=== PATIENT | female | born 1950 | race Caucasian/White ===

== ENCOUNTER → 2023-06-29 09:59 | Outpatient (REF) | payer MEDICARE, OTHER, SELFPAY ==
[2023-06-29 12:47] LABS: % Basophils 0.4 % (0-2); % Eosinophils 1.7 % (0-6); % Immature Granulocytes 0.2 % (0-0.5); % Lymphocytes 31.2 % (20.5-51.1); % Monocytes 6.3 % (1.7-9.3); % Neutrophils 60.2 % (42.2-75.2); Absolute Eosinophils 0.1 10^3/uL (0-0.7); Absolute Lymphocytes 1.6 10^3/uL (1.2-3.4); Absolute Monocytes 0.3 10^3/uL (0.1-0.6); Absolute Neutrophils 3.1 10^3/uL (1.4-6.5); Hematocrit 37.1 % (37.0-47.0); Hemoglobin 12.7 g/dL (12.0-16.0); Mean Corp Hgb Conc. 34.2 g/dL (33.0-37.0); Mean Corpuscular Hgb 32.6 pg (27.0-31.0); Mean Corpuscular Volume 95.1 fL (81.0-99.0); Mean Platelet Volume 10.6 fL (7.4-10.4); Nucleated Red Blood Cells % 0 %; Platelet Count 283 10^3/uL (130-400); Red Cell Dist. Width 14.2 % (11.5-14.5); White Blood Cell Count 5.2 10^3/uL (4.8-10.8)
[2023-06-29 13:11] LABS: Iron 102 ug/dl (37-170)
[2023-06-29 13:22] LABS: Percent Saturation 40 % (20-50); Total Iron Binding Capacity 253 ug/dl (265-497)
[2023-06-29 13:48] LABS: Ferritin 62.7 ng/ml (11.1-264.0)
[2023-06-29 14:24] LABS: Vitamin B12 360 pg/ml (239-931)
[2023-06-29 18:07] LABS: Folate > 20.0 ng/ml (2.76-20)
== END ==
LOC: HWLAB 09:59
PROVIDERS: ATTENDING PHYSICIAN Internal Medicine
DX: I44.7 Left bundle-branch block, unspecified (principal); D64.9 Anemia, unspecified
CPT/HCPCS: 36415; 82607; 82728; 82746; 83540; 83550; 85025

== ENCOUNTER → 2023-10-19 12:09 | Outpatient (REF) | payer MEDICARE, OTHER, SELFPAY | LOC: HWRAD 12:09 | PROVIDERS: ATTENDING PHYSICIAN Registered Nurse Ambulatory Care; FAMILY PHYSICIAN Internal Medicine; REFERRING PHYSICIAN Chiropractor | DX: M79.651 Pain in right thigh (principal) | CPT/HCPCS: 72110; 73501 ==

== ENCOUNTER → 2023-10-26 10:17 | Outpatient (REF) | payer MEDICARE, OTHER, SELFPAY ==
[2023-10-26 12:04] LABS: Urine Albumin Negative (Neg - Trace); Urine Bilirubin Negative (Negative); Urine Character Clear (Clear); Urine Color Yellow; Urine Glucose Negative (Negative); Urine Ketone Negative (Negative); Urine Leukocyte Negative (Negative); Urine Nitrite Negative (Negative); Urine Occult Blood Negative (Negative); Urine Urobilinogen Negative (Neg - 1+)
== END ==
LOC: HWLAB 10:17
PROVIDERS: ATTENDING PHYSICIAN Registered Nurse Ambulatory Care
DX: R39.9 Unspecified symptoms and signs involving the genitourinary system (principal); R31.9 Hematuria, unspecified
CPT/HCPCS: 81003

== ENCOUNTER → 2023-11-03 13:36 | Outpatient (REF) | payer MEDICARE, OTHER, SELFPAY | LOC: MRI 13:36 | PROVIDERS: ATTENDING PHYSICIAN Pain Medicine Interventional Pain Medicine; FAMILY PHYSICIAN Internal Medicine; REFERRING PHYSICIAN Chiropractor | DX: M25.551 Pain in right hip (principal) | CPT/HCPCS: 73721 ==

== ENCOUNTER → 2023-11-22 08:58 | Outpatient (REF) | payer MEDICARE, OTHER, SELFPAY ==
[2023-11-22 12:03] LABS: % Basophils 0.2 % (0-2); % Eosinophils 0.2 % (0-6); % Immature Granulocytes 0.4 % (0-0.5); % Lymphocytes 25.5 % (20.5-51.1); % Monocytes 6.9 % (1.7-9.3); % Neutrophils 66.8 % (42.2-75.2); Absolute Lymphocytes 1.4 10^3/uL (1.2-3.4); Absolute Monocytes 0.4 10^3/uL (0.1-0.6); Absolute Neutrophils 3.7 10^3/uL (1.4-6.5); Hematocrit 35.3 % (37.0-47.0); Hemoglobin 12.4 g/dL (12.0-16.0); Mean Corp Hgb Conc. 35.1 g/dL (33.0-37.0); Mean Corpuscular Hgb 32.6 pg (27.0-31.0); Mean Corpuscular Volume 92.9 fL (81.0-99.0); Mean Platelet Volume 11.1 fL (7.4-10.4); Nucleated Red Blood Cells % 0 %; Platelet Count 214 10^3/uL (130-400); Red Cell Dist. Width 13.9 % (11.5-14.5); White Blood Cell Count 5.5 10^3/uL (4.8-10.8)
[2023-11-22 12:15] LABS: ALT (SGPT) 57 U/L (0-35); AST (SGOT) 36 U/L (14-36); Albumin 3.9 g/dl (3.5-5.0); Alkaline Phosphatase 50 U/L (38-126); Blood Urea Nitrogen 30 mg/dl (7-17); Calcium 9.5 mg/dl (8.4-10.2); Carbon Dioxide 28 mmol/L (22-30); Chloride 108 mmol/L (98-107); Glucose 109 mg/dl (70-99); HDL Cholesterol 68 mg/dl; LDL Cholesterol, Calculated 114 mg/dl; Potassium 4.4 mmol/L (3.5-5.1); Sodium 140 mmol/L (135-145); Total Bilirubin 1.4 mg/dl (0.2-1.3); Total Cholesterol 199 mg/dl (50-199); Total Protein 6.2 g/dl (6.3-8.2); Triglyceride 87 mg/dl (10-149); Very Low Density Lipoprotein 17 mg/dl (0-30); eGFR 53.72
[2023-11-22 12:31] LABS: Vitamin D, 25-OH*** 50.5 ng/mL (30-80)
[2023-11-22 12:45] LABS: TSH Reflex To Free T4 1.63 uIU/ml (0.47-4.68)
[2023-11-22 13:21] LABS: Folate > 20.0 ng/ml (2.76-20); Vitamin B12 962 pg/ml (239-931)
== END ==
LOC: HWLAB 08:58
PROVIDERS: ATTENDING PHYSICIAN Internal Medicine
DX: R73.09 Other abnormal glucose (principal); D64.9 Anemia, unspecified; E53.8 Deficiency of other specified B group vitamins; E78.5 Hyperlipidemia, unspecified; E55.9 Vitamin D deficiency, unspecified; I10 Essential (primary) hypertension
CPT/HCPCS: 36415; 80053; 80061; 82306; 82607; 82746; 83036; 84443; 85025

== ENCOUNTER → 2024-02-07 15:06 | Outpatient (REF) | payer MEDICARE, OTHER, SELFPAY | LOC: HWWDC 15:06 | PROVIDERS: ATTENDING PHYSICIAN Internal Medicine | DX: Z12.31 Encounter for screening mammogram for malignant neoplasm of breast (principal) | CPT/HCPCS: 77063; 77067 ==

== ENCOUNTER → 2024-05-03 09:34 | Outpatient (REF) | payer MEDICARE, OTHER, SELFPAY ==
[2024-05-03 12:48] LABS: ALT (SGPT) 27 U/L (0-35); AST (SGOT) 30 U/L (14-36); Albumin 3.7 g/dl (3.5-5.0); Alkaline Phosphatase 49 U/L (38-126); Blood Urea Nitrogen 20 mg/dl (7-17); Calcium 9.4 mg/dl (8.4-10.2); Carbon Dioxide 31 mmol/L (22-30); Chloride 106 mmol/L (98-107); Glucose 106 mg/dl (70-99); HDL Cholesterol 77 mg/dl; LDL Cholesterol, Calculated 113 mg/dl; Potassium 4.1 mmol/L (3.5-5.1); Sodium 140 mmol/L (135-145); Total Bilirubin 1.3 mg/dl (0.2-1.3); Total Cholesterol 212 mg/dl (50-199); Total Protein 6.1 g/dl (6.3-8.2); Triglyceride 114 mg/dl (10-149); Very Low Density Lipoprotein 22 mg/dl (0-30); eGFR > 60.00
== END ==
LOC: HWLAB 09:34
PROVIDERS: ATTENDING PHYSICIAN Internal Medicine
DX: Z00.00 Encounter for general adult medical examination without abnormal findings (principal); R79.89 Other specified abnormal findings of blood chemistry; E78.5 Hyperlipidemia, unspecified
CPT/HCPCS: 36415; 80053; 80061

== ENCOUNTER → 2024-11-26 07:50 | Outpatient (REF) | payer MEDICARE, OTHER, SELFPAY ==
[2024-11-26 10:03] LABS: Hematocrit 34.4 % (37.0-47.0); Hemoglobin 11.6 g/dL (12.0-16.0); Mean Corp Hgb Conc. 33.7 g/dL (33.0-37.0); Mean Corpuscular Volume 94.2 fL (81.0-99.0); Nucleated Red Blood Cells % 0 %; Platelet Count 250 10^3/uL (130-400); Red Cell Dist. Width 13.9 % (11.5-14.5)
[2024-11-26 10:16] LABS: ALT (SGPT) 23 U/L (0-35); AST (SGOT) 25 U/L (14-36); Albumin 4.0 g/dl (3.5-5.0); Alkaline Phosphatase 49 U/L (38-126); Blood Urea Nitrogen 28 mg/dl (7-17); Calcium 9.4 mg/dl (8.4-10.2); Carbon Dioxide 24 mmol/L (22-30); Chloride 111 mmol/L (98-107); Glucose 101 mg/dl (70-99); HDL Cholesterol 66 mg/dl; LDL Cholesterol, Calculated 110 mg/dl; Potassium 4.1 mmol/L (3.5-5.1); Sodium 142 mmol/L (135-145); Total Protein 6.2 g/dl (6.3-8.2); Very Low Density Lipoprotein 14 mg/dl (0-30); eGFR 59.86
[2024-11-26 10:20] LABS: Glycohemoglobin (HgbA1c) 5.4 % (4.0-5.6)
[2024-11-26 10:42] LABS: TSH 2.66 uIU/ml (0.47-4.68)
== END ==
LOC: HWLAB 07:50
PROVIDERS: ATTENDING PHYSICIAN Internal Medicine
DX: R79.89 Other specified abnormal findings of blood chemistry (principal); E78.5 Hyperlipidemia, unspecified
CPT/HCPCS: 36415; 80053; 80061; 83036; 84443; 85025

== ENCOUNTER → 2025-01-28 14:03 | Outpatient (REF) | payer MEDICARE, OTHER, SELFPAY | LOC: HWRAD 14:03 | PROVIDERS: ATTENDING PHYSICIAN Internal Medicine | DX: M85.80 Other specified disorders of bone density and structure, unspecified site (principal); M85.89 Other specified disorders of bone density and structure, multiple sites | CPT/HCPCS: 77080 ==

== ENCOUNTER → 2025-02-07 07:59 | Outpatient (REF) | payer MEDICARE, OTHER, SELFPAY | LOC: HWWDC 07:59 | PROVIDERS: ATTENDING PHYSICIAN Internal Medicine | DX: Z12.31 Encounter for screening mammogram for malignant neoplasm of breast (principal) | CPT/HCPCS: 77063; 77067 ==

== ENCOUNTER → 2025-02-14 08:21 | Outpatient (REF) | payer MEDICARE, OTHER, SELFPAY ==
[2025-02-14 09:39] LABS: Hematocrit 36.8 % (37.0-47.0); Hemoglobin 12.1 g/dL (12.0-16.0); Mean Corp Hgb Conc. 32.9 g/dL (33.0-37.0); Mean Corpuscular Volume 93.9 fL (81.0-99.0); Nucleated Red Blood Cells % 0 %; Platelet Count 248 10^3/uL (130-400); Red Cell Dist. Width 13.8 % (11.5-14.5)
[2025-02-14 10:46] LABS: ALT (SGPT) 27 U/L (0-35); AST (SGOT) 29 U/L (14-36); Albumin 4.3 g/dl (3.5-5.0); Alkaline Phosphatase 52 U/L (38-126); Calcium 9.8 mg/dl (8.4-10.2); Carbon Dioxide 28 mmol/L (22-30); Chloride 109 mmol/L (98-107); Glucose 94 mg/dl (70-99); Iron 95 ug/dl (37-170); Potassium 4.3 mmol/L (3.5-5.1); Sodium 142 mmol/L (135-145); Total Protein 6.9 g/dl (6.3-8.2); eGFR 59.49
[2025-02-14 10:56] LABS: Total Iron Binding Capacity 258 ug/dl (265-497)
[2025-02-14 13:05] LABS: Ferritin 58.6 ng/ml (11.1-264.0)
[2025-02-14 13:36] LABS: Blood Urea Nitrogen 27 mg/dl (7-17)
[2025-02-14 13:37] LABS: Folate > 20.0 ng/ml (2.76-20); Vitamin B12 602 pg/ml (239-931)
== END ==
LOC: HWLAB 08:21
PROVIDERS: ATTENDING PHYSICIAN Internal Medicine
DX: R79.89 Other specified abnormal findings of blood chemistry (principal); D64.9 Anemia, unspecified; M50.222 Other cervical disc displacement at C5-C6 level
CPT/HCPCS: 36415; 80053; 82607; 82728; 82746; 83540; 83550; 85025

== ENCOUNTER 2025-03-10 19:02 | Emergency (ER) | payer MEDICARE, OTHER, SELFPAY ==
[2025-03-10 19:03] VITALS: BP 168/87
[2025-03-10 19:33] LABS: Hematocrit 40.0 % (37.0-47.0); Hemoglobin 13.3 g/dL (12.0-16.0); Mean Corp Hgb Conc. 33.3 g/dL (33.0-37.0); Mean Corpuscular Volume 93.0 fL (81.0-99.0); Nucleated Red Blood Cells % 0 %; Platelet Count 241 10^3/uL (130-400); Red Cell Dist. Width 13.9 % (11.5-14.5)
[2025-03-10 19:57] LABS: ALT (SGPT) 37 U/L (0-35); AST (SGOT) 28 U/L (14-36); Albumin 4.1 g/dl (3.5-5.0); Alkaline Phosphatase 51 U/L (38-126); Blood Urea Nitrogen 30 mg/dl (7-17); Calcium 9.8 mg/dl (8.4-10.2); Carbon Dioxide 28 mmol/L (22-30); Chloride 109 mmol/L (98-107); Glucose 147 mg/dl (70-99); Potassium 4.7 mmol/L (3.5-5.1); Sodium 140 mmol/L (135-145); Total Protein 6.7 g/dl (6.3-8.2); eGFR 59.49
[2025-03-10 20:11] LABS: Troponin I < 0.012 ng/ml
[2025-03-10 21:12] VITALS: BP 155/73
--- NOTE | 2025-03-10 21:56 | ED.GENMED ---
History of Present Illness
General
Chief Complaint: Cardiac Symptoms
Time Seen by Provider: 03/10/25 21:06
History of Present Illness
History of Present Illness:
74-year-old female with history of hyperlipidemia presenting to the emergency department for chest pain. Patient reports over the past few weeks she has been having some episodes of chest pain. She notes 2 episodes about 1 to 2 weeks ago, lasting
about 15 minutes. Pain was right-sided, sharp in quality. 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 She denies any known cardiac history. She notes a normal stress test several years ago. Last
night while she was sitting, again started to have some sternal chest pain, which lasted about 2 to 3 minutes. She denies any present chest pain, difficulty breathing, fever, cough. Denies any associated diaphoresis. Denies additional acute
medical complaints.
Past History
Past History
ED Past Medical History: Hypercholesterolemia and Other (History of right bundle branch block, arthritis, degenerative joint disease, osteoarthritis, osteoporosis, lumbar or sacral herniated disks, amblyopia)
ED Past Surgical History: Cholecystectomy, Gynecological (Hysterectomy), Orthopedic (Bilateral knee was placed , left foot surgery 2006 right foot surgery 2002 right knee in 2002) and Tonsilectomy
Social History
Personal:
Living: alone
Employment: Disabled
Phy Exam
Physical Exam
Physical Exam:
General: Well-appearing, no clinical signs of dehydration, nontoxic and in no acute distress
HEENT: protecting airway
Neck: appears supple
CV: Normal heart rate, regular rhythm
Resp: No accessory muscle use, no increased work of breathing, lungs clear to auscultation bilaterally
Abd: No distention
Extremities: No deformities, no swelling
Neuro: alert, no focal neurologic deficit
: deferred
Rectal: deferred
Psych: Normal affect
Skin: Intact
Scores
Heart Score for Chest Pain Patients
STEMI patient?: No
History: Slightly or Non-Suspicious
ECG: Normal
Age: >/= 65 years
Risk Factors: 1 or 2 Risk Factors
Troponin: </= Normal Limit
Heart Score for Chest Pain Patients: 3
Heart Score Risk: 2.5% MACE over next 6 weeks
Course
Orders/Labs/Results
Orders:
Orders
03/10/25 19:03
ECG [Electrocardiogram (*1)] Urgent
Reason for Study: Chest Pain
EKG- Treatment ONCE
03/10/25 19:18
Complete Blood Count/With Diff Urgent
Comprehensive Metabolic Panel Urgent
Troponin I Urgent
Abnormal Lab Results
03/10/25
19:18
Chloride 109 H mmol/L
(98-107)
BUN 30 H mg/dl
(7-17)
Glucose 147 H mg/dl
(70-99)
Total Bilirubin 1.8 H mg/dl
(0.2-1.3)
ALT 37 H U/L
(0-35)
03/10/25 19:18
03/10/25 19:18
Vital Signs
Initial and Last Documented VS:
Initial Vital Signs
Temp Pulse Resp BP Pulse Ox
98.9 F 80 16 168/87 99
03/10/25 19:03 03/10/25 19:03 03/10/25 19:03 03/10/25 19:03 03/10/25 19:03
Last Documented Vital Signs
Temp Pulse Resp BP Pulse Ox
98.9 F 79 18 155/73 99
03/10/25 19:03 03/10/25 21:30 03/10/25 21:30 03/10/25 21:12 03/10/25 21:56
MDM/Problems Addressed
MDM/Problems Addressed:
74-year-old female with history of hyperlipidemia presenting for episode of chest pain last night. Vital signs are significant for mild hypertension.
On exam patient is resting comfortably, no acute distress. Patient currently asymptomatic with unremarkable cardiac and pulmonary exam. EKG obtained on arrival left bundle branch block, unchanged from prior. Labs obtained prior to my assessment,
negative troponin. In the absence of present symptoms, unchanged EKG and undetectable troponin, lower suspicion for ACS. Blood pressure minimally elevated, without concerning features or concern for aortic catastrophe. No respiratory symptoms, no
PE risk factors, without concern for PE. Patient already has an appointment scheduled for a stress test on Tuesday. Feel stable for discharge with close interval follow-up with cardiology. However strict return precautions were communicated and
patient verbalized understanding
*Pulse Oximetry
SaO2: 99
Oxygen Mode of Delivery: Room air
Patient hypoxic: no
*EKG
Interpreted by ED Provider?: Yes
EKG Intrepretation Date: 03/10/25
EKG Intrepretation Time: 22:05
Interpretation: abnormal
Comparison EKG: no changes
Heart Rate: 75
Rate: normal
Rhythm: sinus
[place]: normal axis
Interval: normal interval
QRS Pattern: left bundle branch block
Ischemia: no ischemia
*Critical Care Note
Total Time (30-74mins, 75-104mins- exclusive of procedures): Not Applicable
ED Attending Note
-
Portions of this chart may have been created with voice recognition software.� Occasional wrong word or��sound alike� substitutions may have occurred due to the inherent limitations of voice recognition software.
Discharge Plan
Departure
Patient Disposition: Home (Routine Discharge)
Date of Disposition: 03/10/25
Time of Disposition: 21:56
Patient with high blood pressure during this ER visit?: Yes
Condition: Good
Discharge Problem:
HTN (hypertension), Chest pain
Instructions: Chest Pain (DC), BLOOD PRESSURE
Prescriptions:
No Action
atorvastatin 10 MG tablet
10 mg PO QPM
zolpidem 5 MG tablet
5 mg PO HSPRN PRN (Reason: insomnia)
multivitamin Tablet
1 tab PO DAILY
acetaminophen 500 mg Tablet
1,000 mg PO Q6H PRN (Reason: PAIN)
meloxicam 7.5 mg Tablet
7.5 mg PO DAILY PRN (Reason: PAIN)
aspirin 81 mg Capsule
81 mg PO DAILY
Referrals:
Zoran Gonzales MD [Active, Cardiology]
Katarina Gonzalez NP [Family Provider, Internal Medicine]
Activity Restrictions/Additional Instructions:
You were seen in the emergency department for chest pain
You were found to have reassuring vital signs, EKG, laboratory analysis. We recommend that you follow-up with your pit crane operator, and obtain your stress test as scheduled on Tuesday.
Please follow-up closely with your primary care physician.
Return to the emergency department for any worsening of your symptoms, or any development of chest pain, difficulty breathing, abdominal pain with persistent vomiting and inability to tolerate food or liquid by mouth (concern for dehydration),
weakness, headache or confusion, fever greater than 100.4, or any additional symptoms that are concerning to you.
Thank you for choosing [facility].
Interventions
Interventions:
*Risk Screen - Suicide Last Done: 03/10/25 21:35
*General Assessment Last Done: 03/10/25 21:35
*Neglect/Abuse Screening Last Done: 03/10/25 21:35
*ED- Fall Risk Assessment Last Done: 03/10/25 21:35
*ED COVID-19 Vaccine History Last Done: 03/10/25 21:35
*ED Influenza Vaccine History Last Done: 03/10/25 21:35
ED- Pulmonary Assessment Last Done: 03/10/25 21:37
ED- Cardiac Assessment Last Done: 03/10/25 21:37
Discharge Date and Time
Print Language: [id number]
== END 2025-03-10 22:10 | disposition home or self-care (01) ==
LOC: EMR 19:02
PROVIDERS: EMERGENCY PHYSICIAN Student in an Organized Health Care Education/Training Program; FAMILY PHYSICIAN Internal Medicine; OTHER PHYSICIAN Student in an Organized Health Care Education/Training Program
DX: I10 Essential (primary) hypertension (principal); R07.9 Chest pain, unspecified; I44.7 Left bundle-branch block, unspecified; E78.00 Pure hypercholesterolemia, unspecified; M19.90 Unspecified osteoarthritis, unspecified site; M81.0 Age-related osteoporosis without current pathological fracture; Z79.82 Long term (current) use of aspirin
CPT/HCPCS: 99284; 80053; 84484; 85025; 93005

== ENCOUNTER → 2025-03-13 08:01 | Outpatient (REF) | payer MEDICARE, OTHER, SELFPAY | LOC: HWRCS 08:01 | PROVIDERS: ATTENDING PHYSICIAN Student in an Organized Health Care Education/Training Program; FAMILY PHYSICIAN Internal Medicine | DX: R07.89 Other chest pain (principal) | CPT/HCPCS: 78452; 93017; A9500; J2785 ==